=== PATIENT | female | born 1950 | race Caucasian/White ===

== ENCOUNTER 2023-05-07 20:46 | Emergency (ER) | payer MEDICARE, OTHER, SELFPAY ==
[2023-05-07 21:03] VITALS: BP 131/60; PULSE 70; RESP 16; TEMP 36.3; O2SAT 99; BMI 25.6
--- NOTE | 2023-05-07 21:07 | DI.RAD.S_ITS ---
PROCEDURE: XR ANKLE RT MIN 3V INDICATIONS: fall with pain to ankle TECHNIQUE: 3 views of the ankle were acquired. COMPARISON: None. FINDINGS: Bones: No fractures or dislocations. Ankle mortise is normally aligned. No suspicious bony lesions. Soft tissues: No tibiotalar joint effusion. Achilles tendon appears normal. IMPRESSION: No trauma found. Dictated by: Saleem Pool M.D. on 05/07/2023 at 21:49 Approved by: Saleem Pool M.D. on 05/07/2023 at 21:50
--- NOTE | 2023-05-07 21:07 | DI.RAD.S_ITS ---
PROCEDURE: XR TOE RT MIN 2V INDICATIONS: fall with pain to big toe and ankle TECHNIQUE: 4 views of the great toe(s) acquired. COMPARISON: None. FINDINGS: Bones: No fractures or dislocations. No suspicious bony lesions. Soft tissues: No suspicious soft tissue densities. IMPRESSION: Mild degenerative changes but no definite acute trauma found. Dictated by: Saleem Pool M.D. on 05/07/2023 at 21:48 Approved by: Saleem Pool M.D. on 05/07/2023 at 21:49
[2023-05-07 23:07] VITALS: BP 111/64; PULSE 62; RESP 18; O2SAT 99
--- NOTE | 2023-05-08 01:13 | ED_ITS ---
HPI - Extremity Injury (Lower) General Chief Complaint: Extremity Injury, Lower Stated Complaint: THREE STEP FALL. RIGHT FOOT INJURY Time Seen by Provider: 05/07/23 21:15 Source: patient and family Mode of arrival: Wheelchair History of Present Illness HPI Narrative: 73-year-old female nonsmoker with noncontributory medical history presents with a chief complaint of a right foot and ankle injury suffered earlier in the day. She states that she was walking down the steps of her RV when her big toe got caught up causing her ankle to invert causing her to fall. She now has pain and swelling of her right ankle. It hurts to ambulate and improves with rest. She denies numbness, tingling or weakness. She denies any other injury as a consequence of her fall such as head, neck or back pain Related Data Home Medications Medication Instructions Recorded Confirmed furosemide 40 mg tablet 40 mg PO DAILY 05/07/23 05/07/23 levothyroxine 50 mcg tablet 50 mcg PO DAILY 05/07/23 05/07/23 potassium chloride 20 mEq 20 meq PO BID 05/07/23 05/07/23 tablet,extended release(part/cryst) rosuvastatin 5 mg tablet 5 mg PO DAILY 05/07/23 05/07/23 spironolactone 50 mg tablet 50 mg PO DAILY 05/07/23 05/07/23 trazodone 50 mg tablet 20 mg PO BEDTIME PRN Insomnia 05/07/23 05/07/23 Previous Rx's Medication Instructions Recorded hydrocodone 5 mg-acetaminophen 325 1 tab PO Q4-6H PRN pain #10 tabs 05/08/23 mg tablet Allergies Allergy/AdvReac Type Severity Reaction Status Date / Time Sulfa (Sulfonamide Allergy Anaphylaxis Verified 05/07/23 21:03 Antibiotics) Review of Systems Review of Systems Narrative: GENERAL: Denies chills, fatigue, malaise, fever, sweats. HEENT: Denies sinus pain, ear pain, sore throat, difficulty swallowing, dizziness. RESPIRATORY: Denies dyspnea, cough, wheezing, hemoptysis, sputum. CARDIOVASCULAR: Denies chest pain, palpitations, orthopnea, edema, GASTROINTESTINAL: Denies nausea, vomiting, abdominal pain, diarrhea, constipation, melena. : Denies dysuria, frequency, incontinence, hematuria, urinary retention. MUSCULOSKELETAL: See HPI SKIN: Denies rash, skin lesions, or other NEUROLOGIC: Denies weakness, headache, numbness, change in speech, confusion, seizures, incoordination. PSYCHIATRIC: No concerning psychosocial issues. 12 point review of systems is negative except for those stated above Patient History Social History Smoking Status: Never smoker Smoking Status: Never smoker Substance Use Type: does not use Exam Narrative Exam Narrative: GENERAL: [73] year old patient appears stated age. Well-developed patient, in mild distress. HEAD: Atraumatic. Normocephalic. EYES: Pupils equal round and reactive. Extraocular motions intact. No scleral icterus. No injection or drainage. ENT: Nose without bleeding, purulent drainage. Throat without erythema, tonsillar hypertrophy or exudate. Airway patent. NECK: Trachea midline. Non tender CARDIOVASCULAR: Regular rate and rhythm without murmurs, gallops, or rubs. RESPIRATORY: Clear to auscultation. Breath sounds equal bilaterally. No wheezes, rales, or rhonchi. GASTROINTESTINAL: Abdomen soft, non-tender, nondistended. EXTREMITIES: Right ankle with swelling, minimally tender over the lateral malleolus, no obvious ligamentous laxity minimal pain with squeeze test, no lacerations or abrasions, right great toe is also tender and somewhat ecchymotic. Again closed, neurovascularly intact. BACK: Nontender without deformity or crepitance. No flank tenderness. NEURO: AOx3. SKIN: No rash or erythema of visible areas Initial Vital Signs Initial Vital Signs: Vital Signs Temperature 97.4 F L 05/07/23 21:03 Pulse Rate 70 05/07/23 21:03 Respiratory Rate 16 05/07/23 21:03 Blood Pressure 131/60 05/07/23 21:03 Pulse Oximetry 99 05/07/23 21:03 Oxygen Delivery Method Room Air 05/07/23 21:03 Procedures Orthopedic Splinting/Casting Injury #1: Side: right Lower Extremity Injury Location: ankle Lower Extremity Immobilizer: boot orthosis Other Orthopedic Equipment: crutches Post splinting neuro exam: intact Post splinting vascular exam: intact Placed by: Nursing Course Orders Ordered: ED Orders 05/07/23 21:07 XR ankle RT min 3V Stat XR toe RT min 2V Stat Discontinued Medications Hydrocodone Bitart/Acetaminophen (Hydrocodone/Acet 5/325 Prepack) 1 bottle MISC SEEINSTR ONE Stop: 05/08/23 01:25 Last Admin: 05/08/23 01:54 Dose: 1 bottle Documented By: MICKEY Vital Signs Vital signs: Vital Signs - 8 hr 05/07/23 21:03 05/07/23 23:07 Temperature 97.4 F L Pulse Rate 70 62 Respiratory Rate 16 18 Blood Pressure 131/60 111/64 Pulse Oximetry 99 99 Oxygen Delivery Method Room Air Room Air MDM - Extremity Injury (Lower) MDM Narrative Medical decision making narrative: [73] year old patient presents with right ankle pain after fall Multiple etiologies for patient's symptoms considered including, but not limited to: [Fracture versus dislocation versus contusion] Prior Charts reviewed in our EMR Primary Historian: patient Imaging reviewed: No fracture or dislocation on ankle or foot Patient's history and physical exam are reassuring, isolated foot and ankle injuries that are closed and neurovascularly intact, imaging unremarkable, given level of pain patient is splinted, encouraged nonweightbearing with evolution to weight-bearing as tolerated, use of crutches, pain control Patient's symptoms improved over duration of stay with above-stated therapies. Findings and discharge diagnosis discussed with patient/family followed by verbalization of understanding Return precautions discussed with patient/family whom verbalize understanding of diagnosis and plan Discharge Plan Departure Patient Disposition: Home Clinical Impression: Ankle sprain and strain, Contusion of toe Instructions: DI for Ankle Sprain Activity Restrictions/Additional Instructions: *You have been diagnosed with [right ankle sprain and great toe contusion, as]We discussed the x-ray showed no evidence of fracture or dislocation *What to do: *Please continue to take your regular medications as directed. [x] New medication prescriptions sent to your pharmacy: [[facility] ] [ ] New medication written as a paper prescription [x] Tylenol and occasional Motrin for pain *Return to Emergency Department if you should have any new, worsening or concerning symptoms, such as [worsening pain, significant swelling, cold extremities, numbness, tingling, weakness or other bothersome symptoms Weight bearing as tolerated You have been prescribed a short course of narcotic medications. These are potentially dangerous and addictive medications that should be used carefully. While on these medications you cannot drive or operate heavy machinery. Additionally, you cannot sign legal documents or perform any duties such as this. Many people get constipated on narcotic medications so it would be advisable to discuss stool softeners with the pharmacist when you strip picker your prescription. Please understand that we cannot provide further refills of narcotics or controlled substances through the ED and your pain management will need to be through your Primary Care Provider Prescriptions: New hydrocodone-acetaminophen 5-325 mg tablet 1 tab PO Q4-6H PRN (Reason: pain) Qty: 10 0RF No Action furosemide 40 mg tablet 40 mg PO DAILY trazodone 50 mg tablet 20 mg PO BEDTIME PRN (Reason: Insomnia) potassium chloride 20 mEq tablet,ER particles/crystals 20 meq PO BID levothyroxine 50 mcg tablet 50 mcg PO DAILY spironolactone 50 mg tablet 50 mg PO DAILY rosuvastatin 5 mg tablet 5 mg PO DAILY Referrals: Jason Georges MD [Primary Care Provider] - Stand Alone Forms: Patient Portal/API
[2023-05-08] MEDS: HYDROCODONE/ACET 5/325 PREPACK 1 BOTTLE MISC (01:54)
[2023-05-08 02:03] VITALS: BP 117/56; PULSE 65; RESP 18; O2SAT 100
== END 2023-05-08 02:05 | disposition home or self-care (01) ==
PROVIDERS: Emergency Provider Emergency Medicine; PCP Family Medicine
DX: S93.401A Sprain of unspecified ligament of right ankle, initial encounter (principal); S96.911A Strain of unspecified muscle and tendon at ankle and foot level, right foot, initial encounter; S90.111A Contusion of right great toe without damage to nail, initial encounter; W10.9XXA Fall (on) (from) unspecified stairs and steps, initial encounter
CPT/HCPCS: 73610; 73660; 99282; 99283